=== PATIENT | female | born 1955 | race Asian ===

== ENCOUNTER 2018-04-11 21:43 | Emergency (ER) | payer BC ==
[~2018-04-11] VITALS: Ht 152.4 cm; Wt 46.3 kg
[2018-04-11 22:32] VITALS: Ht 152.4 cm; Wt 46.3 kg
[2018-04-12 00:35] VITALS: BP 151/94
== END 2018-04-12 00:35 | disposition home or self-care (01) ==
LOC: ED 21:43
DX: S52.502A Unspecified fracture of the lower end of left radius, initial encounter for closed fracture (principal); S52.602A Unspecified fracture of lower end of left ulna, initial encounter for closed fracture; I10 Essential (primary) hypertension; W01.0XXA Fall on same level from slipping, tripping and stumbling without subsequent striking against object, initial encounter; Y93.89 Activity, other specified; Y92.89 Other specified places as the place of occurrence of the external cause; Y99.8 Other external cause status